=== PATIENT | female | born 1980 | race Caucasian/White ===

== ENCOUNTER → 2020-05-10 08:26 | Outpatient (CLI) | payer BC, SELFPAY ==
--- NOTE | ~2020-05-10 | MMUS_ITS ---
EXAMINATION: MM diagnostic clarke RT w anu, US breast RT limited HISTORY: Six-month follow-up for probably benign right breast mass TECHNIQUE: Craniocaudal, mediolateral, and mediolateral oblique 3-D tomosynthesis images of the right breast were performed and synthetic 2-D images were generated. CAD analysis was submitted and interp reted. High resolution limited right breast ultrasound was performed. COMPARISON: 10/11/2019 BREAST PARENCHYMAL COMPOSITION: The breasts are heterogeneously dense, which may obscure small masses . FINDINGS: MAMMOGRAPHIC FINDINGS: There is no evidence of suspicious mass, calcification, or architectural distortion to suggest malig tyra. There has been no suspicious interval change. ULTRASOUND: The previously described mass at the 9:00 location in the right breast is no longer evident. No suspi cious cystic or solid mass is identified in the upper outer quadrant of the breast. IMPRESSION: 1. Resolved sonographically detected right breast mass. No mammographic or sonographic evidence of ma lignancy. 2. Recommend routine screening mammography in one year. Of note, patient is due for left breast scree donna in September. BI-RADS Category 1: Negative Reviewed, dictated and finalized at location A. IMPRESSION: 1. Resolved sonographically detected right breast mass. No mammographic or sono graphic evidence of malignancy. 2. Recommend routine screening mammography in one year. Of note, patient is due for left breast screening in September. BI-RADS Category 1: Negative
== END ==
PROVIDERS: PCP Nurse Practitioner Family; Visit Provider Nurse Practitioner Family
DX: R92.8 Other abnormal and inconclusive findings on diagnostic imaging of breast (principal)
CPT/HCPCS: 76642; 77061; 77065; G0279

== ENCOUNTER 2023-09-16 09:49 | Outpatient (CLI) | payer BC, SELFPAY ==
--- NOTE | ~2023-09-16 | MMUS_ITS ---
EXAMINATION: MM diagnostic clarke BI w anu, US breast BI complete HISTORY: Breast pain, right upper inner quadrant, for 4 weeks TECHNIQUE: Full field and spot ML, MLO and CC 3-D tomosynthesis images of both breasts were performed and synthetic 2-D images were generated. CAD analysis was submitted and interpreted. High resolution complete bilateral breast ultrasound examination including all 4 quadrants and subareolar area of ea ch breast was performed. COMPARISON: 05/10/2020 diagnostic right mammogram and limited right breast ultrasound 10/11/2019 bilateral diagnostic mammography and bilateral Limited breast ultrasound examination Breast parenchymal composition: There is heterogeneously dense breast tissue, which may obscure small masses. FINDINGS: MAMMOGRAPHIC FINDINGS: No suspicious mass or architectural distortion, malignant calcification, skin thickening or retractio n or significant new or developing density is detected. ULTRASOUND: Right breast: 10:00 5 cm from nipple: Parallel circumscribed sonolucency measuring 2.8 x 4.6 x 4.8 mm, with through transmission, consistent with simple cyst Left breast: 2:00 7 cm from nipple: Parallel circumscribed hypoechoic 2.7 x 4.2 x 4.4 mm solid lesion with fatty h ilum, likely a benign intramammary lymph node 3:00 5 cm from nipple: Similar parallel circumscribed hypoechoic 2 x 4 x 3.1 mm lesion without international guest coordinator al vascularity or posterior shadowing, likely benign 4:00 5 cm from nipple: Parallel circumscribed mixed hypoechoic and sonolucent 2.1 x 5.2 x 4 mm lesion without internal vascularity or posterior shadowing, likely benign IMPRESSION: 1. Benign findings 2. Routine annual mammographic screening is recommended. BI-RADS Category 2: Benign finding(s). Reviewed, dictated and finalized at location A. BASE DESIGN ANALYST IMPRESSION: 1. Benign findings 2. Routine annual mammographic screening is recommended. BI-RADS Category 2: Benign finding(s).
== END 2023-09-16 09:50 ==
PROVIDERS: PCP Physician Assistant; Visit Provider Nurse Practitioner Family
DX: N64.4 Mastodynia (principal)
CPT/HCPCS: 76641; 77062; 77066; G0279

== ENCOUNTER 2024-04-27 07:52 | Outpatient (CLI) | payer BC, SELFPAY ==
--- NOTE | ~2024-04-27 | MR_ITS ---
EXAMINATION: MR knee RT wo con DATE: 04/27/2024 08:21 INDICATION: Derangement of the right knee TECHNIQUE: Magnetic resonance imaging (MRI) of the right knee was performed without intravenous contr ast. Sequences included coronal PD-weighted FSE, coronal PD-weighted FS FSE, sagittal T2-weighted FS E, sagittal PD-weighted FS FSE and axial PD weighted fat saturated FSE. COMPARISON: None. FINDINGS: Medial compartment: Medial meniscus is normal. Diffuse mild partial-thickness cartilage loss in the medial compartment wi th relatively smooth chondral surface along the medial tibial plateau and with chondral surface regul arity related to scattered partial thickness chondral ulceration and fissuring along the weightbearin g medial femoral condyle but without degenerative subchondral changes. Lateral compartment: Lateral meniscus is normal. Partially 4 mm diameter deep chondral ulceration without degenerative sub chondral changes at the junction of the anterior to central weightbearing lateral femoral condyle. Re maining articular cartilage in the lateral compartment is normal. Patellofemoral compartment: Articular cartilage is normal. Ligaments and tendons: Anterior and posterior cruciate ligaments are normal. The medial collateral ligament and fibular kyler ateral ligament complex are normal. Mild distal quadriceps tendinopathy without tear. Patellar tendon is normal. The visualized medial and lateral hamstring tendons as well as the iliotibial band are no rmal. Fluid: Minimal right knee joint effusion. No loose osteochondral bodies identified. Small Bashir's cyst. Osseous/other: Normal marrow signal. No fracture or pathologic marrow replacing process. IMPRESSION: 1. Mild osteoarthritis with regions of moderate grade chondromalacia in the lateral and more prominen tly in the medial compartment with likely reactive very small right knee joint effusion. Reviewed, dictated and finalized at location B. IMPRESSION: 1. Mild osteoarthritis with regions of moderate grade chondromalacia in the lat eral and more prominently in the medial compartment with likely reactive very s mall right knee joint effusion.
== END 2024-04-27 07:53 ==
LOC: MICIMG 07:52
PROVIDERS: PCP Physician Assistant; Visit Provider Family Medicine Sports Medicine
DX: M25.461 Effusion, right knee (principal); M17.11 Unilateral primary osteoarthritis, right knee
CPT/HCPCS: 73721

== ENCOUNTER 2024-11-24 11:05 | Outpatient (CLI) | payer BC, SELFPAY ==
[2024-11-24 11:19] LABS: Basophils Absolute Auto 0.1 K/mm3 (0.0-0.1); Basophils Percent Auto 1.4 % (0.2-1.2); Eosinophils Absolute Auto 0.1 K/mm3 (0-0.3); Eosinophils Percent Auto 1.8 % (0-4.4); Hematocrit 41.6 % (37.0-47.0); Hemoglobin 14.4 g/dL (12.0-15.0); Immature Granulocyte Absolute 0.01 K/mm3 (0.00-0.031); Immature Granulocyte Percent A 0.2 % (0-0.5); Lymphocytes Percent Auto 33.9 % (18.3-44.2); Mean Corpuscular HGB Conc 34.6 g/dl (32-36); Mean Corpuscular Hemoglobin 31.4 pg (26-34); Mean Corpuscular Volume 90.6 fl (80-100); Monocytes Absolute Auto 0.3 K/mm3 (0.1-0.6); Monocytes Percent Auto 6.6 % (2.6-8.5); Neutrophils Absolute Auto 2.8 K/mm3 (1.3-6.7); Neutrophils Percent Auto 56.1 % (45.5-73.1); Platelet Count Result 250 k/mm3 (150-375); Red Blood Count 4.59 M/mm3 (4.2-5.4)
--- OUTSIDE RECORDS SUMMARY | 2024-11-24 12:27 | XMS_ITS | Clinical Summary ---
Author Organization [facility] Address [address] [place] [address] Care Team Providers Care Surface Plate Inspector Name Role Phone Unavailable Primary Care Provider Unavailabl e Allergies Active Allergy Reactions Criticality Noted Date Comments Erythromycin Nausea and Vomiting Low 11/24/2024 Medications valsartan (DIOVAN) 320 mg tablet Take 320 mg by mouth daily. 11/22/2024 Active citalopram (CeleXA) 10 mg tablet Take 1 Tablet by mouth daily. 11/10/2024 Active Active Problems No known active problems Encounters Date Type Department Care Team Description 11/24/2024 10:30 AM BAFFLE MOUNTER Office Visit [facility] Oncology and Hematology - [place] [address] [place] [address] Norberto Gonsalez MD Iron overload (Primary Dx) from Last 3 Months Family History Medical History Relation Name Comments No Known Problems Brother No Known Problems Child Diabetes Father Heart Disease Mother Ovarian Cancer Mother Relation Name Status Comments Brother Alive Child Alive Father Alive Mother Alive Social History Tobacco Use Types Packs/Day Years Used Date Smoking Tobacco: Every Day Cigarettes 0.5 28.1 Started: 10/27/1996 Smokeless Tobacco: Never Tobacco Cessation:Ready to Q uit: Not Asked; Counseling Given: Not Answered Alcohol Use Standard Drinks/Week Comments Yes 0 (1 standard drink = 0.6 oz pur e alcohol) Comments Unknown Sex and Gender Information Value Date Recorded Sex Assigned at Not on file Legal Sex Female 2:41 PM BAFFLE MOUNTER Gender Identity Not on file Sexual Orientation Not on file Last Filed Vital Signs Vital Sign Reading Time Taken Comments Blood Pressure 135/89 11/24/2024 10:42 AM BAFFLE MOUNTER Pulse 98 11/24/2024 10:38 AM BAFFLE MOUNTER Temperature 37 ??C (98.6 ??F) 11/24/2024 10: 38 AM BAFFLE MOUNTER Respiratory Rate 16 11/24/2024 10:3 8 AM BAFFLE MOUNTER Oxygen Saturation 97% 11/24/2024 10: 38 AM BAFFLE MOUNTER Inhaled Oxygen Concentration - - Weight 74.3 kg (163 lb 12.8 oz) 025 10:38 AM BAFFLE MOUNTER Height 160 cm (5' 3 ) 11/24/2024 10:38 AM BAFFLE MOUNTER Body Mass Index 29.02 11/24/2024 10:38 AM BAFFLE MOUNTER Plan of Treatment Upcoming Encounters Date Type Department Care Team (Late st Contact Info) Description 12/09/2024 4:30 PM BAFFLE MOUNTER Telephone Check Up [facility]ology - [place] [address] [facility] [address] [place] [address] Norberto Gonsalez MD [address] [facility] [address] [place] [address] Health Maintenance Due Date Last Done Comments DTAP/TDAP/TD VACCINES (1 - Tdap) 1998 HEPATITIS B VACCINES (1 of 3 - 19+ 3-dose series) 1998 CERVICAL CANCER SCREENING 2009 BREAST CANCER SCREENING 2019 INFLUENZA VACCINE (#1) 2024 COLORECTAL SCREENING 2024 Colorectal Cancer Screening 2024 FIT-DNA Q 3 years 2024 FIT/FOBT Q 1 year 2024 Flex Sig/CT Colonography Q 5 years 2024 Preventative Visit- Commercial 10/27/2024 HPV VACCINES Aged Out No longer eligi ble based on patient's age to complete this topic Insurance BS BLUE ACCESS/TRUE BLUE PPO [facility]
--- OUTSIDE RECORDS SUMMARY | 2024-11-24 12:27 | XMS_ITS | Encounter Summary ---
[facility] Address [address] [place] [address] Care Team Providers Care Dependency Program Director Name Role Phone Unavailable Primary Care Provider Unavailabl e Reason for Referral * Laboratory Services (Routine) - Open Specialty Diagnoses / Procedures Referred By Blessing t Referred To Contact Diagnoses Iron overload Procedures HEMOCHROMATOSIS GENOTYPE Norberto Gonsalez MD [id number] [facility] [address] [address] Phone: tel: fax: Referral ID Status Reason Start Date Expiration Date Visits Re quested Visits Authorized [id number] Open 11/24/2024 12/25/2025 1 1 US SUPERVISOR Reason for Visit * Reason Comments Follow Up Encounter Details Date Type Department Care Team (Late st Contact Info) Description 11/24/2024 10:30 AM CAMPUS SUPERVISOR Office Visit [facility] Oncology and Hematology - [place] [address] [place] [phone] Norberto Gonsalez MD [id number] [facility] [address] [place] [phone] Iron overload (Primary Dx) Social History Tobacco Use Types Packs/Day Years [...] on file Legal Sex Female 2:41 PM CAMPUS SUPERVISOR Gender Identity Not on file Sexual Orientation Not on file documented as of this encounter Last Filed Vital Signs Vital Sign Reading Time Taken Comments Blood Pressure 135/89 11/24/2024 10:42 AM CAMPUS SUPERVISOR Pulse 98 11/24/2024 10:38 AM CAMPUS SUPERVISOR Temperature 37 ??C (98.6 ??F) 11/24/2024 10: 38 AM CAMPUS SUPERVISOR Respiratory Rate 16 11/24/2024 10:3 8 AM CAMPUS SUPERVISOR Oxygen Saturation 97% 11/24/2024 10: 38 AM CAMPUS SUPERVISOR Inhaled Oxygen Concentration - - Weight 74.3 kg (163 lb 12.8 oz) 025 10:38 AM CAMPUS SUPERVISOR Height 160 cm (5' 3 ) 11/24/2024 10:38 AM CAMPUS SUPERVISOR Body Mass Index 29.02 11/24/2024 10:38 AM CAMPUS SUPERVISOR documented in this encounter Progress Notes * Norberto Gonsalez MD - 11/24/2024 10:44 AM CST Hematology-oncology consult Note Requesting Physician Primary Care Physician No primary care provider on file. Problem list There is no problem list on file for this patient. Previous TREATMENT ? Measurable Disease ? Reason for Visit Leatha Monte is a 44 y.o. female who was referred for consultation for iron overload History of present illness This is a pleasant 44-year-old female with history of hypertension and anxiety referred to me for iron overload. Patient had labs done in July 2024 that showed iron level of 204 with saturation of 60% and ferritin of 246. She has no family history of hemochromatosis. Her last menstrualbleeding was 17 years ago. She drinks 5 glasses of vodka every night for last 20 years duration. She denies any chest pain and shortness of breath. No bleeding and bruising. She has gained 30 pound weight in last 6 months duration. She is not taking any iron supplements. No other new complaints. Past Medical History Past Medical History: Diagnosis Date Diarrhea Fatigue Extreme Hypertension Night sweats Surgical History Past Surgical History: Procedure Laterality Date HX CHOLECYSTECTOMY HX ESSURE TUBAL LIGATION Medications Current Outpatient Medications Medication Sig Dispense Refill valsartan (DIOVAN) 320 mg tablet Take 320 mg by mouth daily. citalopram (CeleXA) 10 mg tablet Take 1 Tablet by mouth daily. No current facility-administered medications for this visit. Allergies Allergies Allergen Reactions Erythromycin Nausea and Vomiting Immunizations: There is no immunization history on file for this patient. Family History Family History Problem Relation Name Age of Onset Diabetes Father Ovarian Cancer Mother Heart Disease Mother No Known Problems Brother No Known Problems Child Social History Social History Tobacco Use Smoking status: Every Day Current packs/day: 0.50 Average packs/day: 0.5 packs/day for 28.1 years (14.0 ttl pk-yrs) Types: Cigarettes Start date: 10/27/1996 Smokeless tobacco: Never Substance Use Topics Alcohol use: Yes Review of Systems Constitutional: Patient did not mention fever; no night sweats; no anorexia; no weight loss; no fatique NEENT: Patient did not mention headache; no change in vision; no change in hearing; no sore throat;no dysphagia Respiratory: Patient did not mention shortness of breath; no pleuritic chest pain; no cough; no hemoptysis Cardiac: Patient did not mention cardiac-like chest pain; no palpitations; no orthopnea; no PND; noDOE Breasts: Patient did not mention tenderness; no masses GI: Patient did not mention abdominal pain; no nausea; no vomiting; no diarrhea; no hematochezia; no melena : Patient did not mention dysuria; no frequency; no hesitancy; no hematuria SHOE PARTS CASER: Musculosketetal: Patient did not mention bone pain; no arthralgia; no joint swelling; no myalgia; Skin: Patient did not mention pruritis; no rash; no petechiae; no ecchymoses Endocrine: Patient did not mention polydipsia; no polyuria; no unusual weight gain Neuro: Patient did not mention headache; no change in vision; no sensory changes; no muscle weakness; no confusion; no seizures Psych: Patient did not mention anxiety; no depression; Physical Exam Vitals: As per nursing note Constitutional: Well developed, well nourished, no acute distress, non-toxic appearance Teeth and gum. No signs of infection or swelling. Eyes: PERRL, conjunctiva normal HEENT: Atraumatic, external ears normal, nose normal, oropharynx moist, no pharyngeal exudates. no sinus tenderness Neck- normal range of motion, no tenderness, supple Respiratory: No respiratory distress, normal breath sounds, no rales, no wheezing Cardiovascular: Normal rate, normal rhythm, no murmurs, no gallops, no rubs GI: Soft, nondistended, normal bowel sounds, nontender, no splenomegaly, no hepatomegaly, no mass, no rebound, no guarding : No costovertebral angle tenderness Musculoskeletal: No edema, no tenderness, no deformities. Back- no tenderness Integument: Well hydrated, no rash, Digits and nails inspection normal Lymphatic: No lymphadenopathy noted Neurologic: Alert & oriented x 3, CN 2-12 normal, normal motor function, normal sensory function, no focal deficits noted Psychiatric: Speech and behavior appropriate ? labs No results found for this or any previous visit (from the past 24 hours). Labs from January 2024 showed iron 204 saturation 60% ferritin 246 Pathology ? Imaging & Other Studies Performance Status? Assessment / Plan: ? Iron overload. Patient is a 44-year-old slightly obese female with history of drinking vodka 5 glasses every night for last 20 years duration referred to me for iron overload syndrome. She has no family history or personal history of hemochromatosis. Patient otherwise in good health except history of hypertension and anxiety. I have discussed the differential diagnosis of iron overload and complication associated with iron overload as well as the treatment in detail. In her particularsituation her iron overload is most likely secondary to her alcohol intake. I have recommended abstinence from drinking. I will order the workup that will include CBC with differential, CMP, iron profile and JAK2 mutation. Based on the result we will decide about phlebotomy to keep iron saturation of less than 50% and ferritin of less than 200. I have also recommended regular exercise and weight loss. I have answered all the questions to patient satisfaction. Follow-up phone visit in 2 weeks. Hypertension. Stable on valsartan. Anxiety. Stable on Celexa. Thank you very much for allowing me to participate in Leatha Monte's evaluation and management. Please feel free to contact if I can be of any further assistance in your patient???s care requiring hematology or oncology evaluation. Sincerely, ? ? Norberto Gonsalez M.D. cell TOBACCO COUNSELING She was counseled to discontinue tobacco/nicotine use. Norberto Gonsalez MD ,11/24/2024 11:15 AM ? Total time spent 60 minutes, two third of the total time spent counseling patient [id number]. CC:? US SUPERVISOR documented in this encounter Plan of Treatment Upcoming Encounters Date Type Department Care Team (Late st Contact Info) Description 12/09/2024 4:30 PM CAMPUS SUPERVISOR Telephone Check Up [facility] Oncology and Hematology - [place] [address] [facility] [address] [place] [phone] Norberto Gonsalez MD [address] [facility] [address] [place] [address] Scheduled Orders Name Type Priority Associated Diagnoses Orde r Schedule CBC WITH DIFFERENTIAL Lab Stat Iron overload Expected: 11/24/2024, Expires: 11/24/2025 COMPREHENSIVE METABOLIC PANEL Lab Stat Iron overload Expected: 11/24/2024, Expires: 11/24/2025 FERRITIN Lab Routine Iron overload Expected: 11/24/2024, Expires: 11/24/2025 IRON, TIBC, AND PERCENT SATURATION Lab Routine Iron overload Expected: 11/24/2024, Expires: 11/24/2025 HEMOCHROMATOSIS GENOTYPE Lab Routine Iron overload Ordered: 11/24/2024 documented as of this encounter Visit Diagnoses Diagnosis Iron overload- Primary Other disorders of iron metabolism documented in this encounter
--- OUTSIDE RECORDS SUMMARY | 2024-11-24 12:28 | XMS_ITS | Referral Summary ---
Author Organization [address] Address [address] [place] [phone] Care Team Providers Care Robotic Weld Technician Name Role Phone DoloresDionna cortezlee ann GOODMAN Primary Care Pr ovider Allergies Active Allergy Reactions Criticality Noted Date Comments Erythromycin Stomach upset,Unknown,Vomiting Low 09/01/2009 Reaction: GI UPSET, Medications escitalopram (LEXAPRO) 20 mg tablet Take 1 tablet (20 mg total) by mouth daily 10/11/2013 Active valsartan (DIOVAN) 160 mg tablet Take 1 tablet (160 mg total) by mouth daily 03/15/2024 Active meloxicam (MOBIC) 7.5 mg tabletIndication s:Acute pain of right knee TAKE 1 TABLET(7.5 MG) BY MOUTH DAILY WITH FOOD NEEDED FOR PAIN 30 tablet 06/07/2024 Active Active Problems Problem Noted Date Diagnosed Date Panic disorder 07/31/2011 Depressive disorder 09/01/2009 Social History Tobacco Use Types Packs/Day Years Used Date Smoking Tobacco: Every Day Cigarettes Tobacco Cessation:Ready to Q uit: Not Asked; Counseling Given: Not Answered Comments Unknown Sex and Gender Information Value Date Recorded Sex Assigned at Not on file Legal Sex Female 4:20 AM CEREAL MILLER Gender Identity Not on file Sexual Orientation Not on file Last Filed Vital Signs Vital Sign Reading Time Taken Comments Blood Pressure 145/82 04/16/2024 9:31 AM CDT Pulse 99 04/16/2024 9:31 AM CDT Temperature 36.1 ??C (96.9 ??F) 03/26/2024 2:25 PM CD T Respiratory Rate 12 03/26/2024 2:25 PM CDT Oxygen Saturation 98% 03/26/2024 2:25 PM CDT Inhaled Oxygen Concentration - - Weight 71.2 kg (157 lb) 04/16/2024 9:31 AM CDT Height 160.5 cm (5' 3.19 ) 04/16/2024 9:31 AM CD T Body Mass Index 27.65 04/16/2024 9:31 AM CDT Plan of Treatment Not on file Insurance [facility] ACCESS CHOICE Care Teams Robotic Weld Technician Relationship Specialty Start Date End Date Sanam Hinojosa PA [address] [place] [address] PCP - General Physician Color Paste Mixer 04/16/24
--- OUTSIDE RECORDS SUMMARY | 2024-11-24 12:28 | XMS_ITS | Clinical Summary ---
Author Organization [facility] Address [address] [facility] [place] [address] Care Team Providers Care Air Export Agent Name Role Phone Pcp, Adam Snyder Primary Care Provider Unav ailable Source Comments [facility],non-owned Affiliates and Associated Physician Practices is amultiple site organization consisting of ambulatory clinics and hospital sitesin [place], [place], [place] and [place]. This disclosure is being madepursuant to the Care Everywhere program and may not contain all information available regarding this patient. Last updated 18.[facility] Allergies Active Allergy Reactions Criticality Noted Date Comments Erythromycin Unknown 09/01/2009 Medications * Be aware that medications may not be up to date on this document. Alwaysverify current medications with the patient. Medication Sig Dispensed Refills Start Date End Date Status escitalopram (LEXAPRO) 20 MG tablet TAKE 1 TABLET BY MOUTH EVERY DAY 30 Tab 6 10/11/2013 Active Active Problems Problem Noted Date Diagnosed Date IRVIN (generalized anxiety disorder) 07/31/2011 Panic disorder 07/31/2011 Screening for condition 09/01/2009 Overview (07/27/2015): Colonoscopy: Result: Not avail in chart Date: 1999 Pap Smear: Result: Not avail in chart Date: 10/2007 Mammogram: Result: Not avail in chart Date: 1999 Depressive disorder 09/01/2009 Family History Medical History Relation Name Comments Cancer Father Cancer Maternal Grandmother Asthma Mother Cancer Mother Hypertension Mother Cancer Paternal Grandfather Cancer Paternal Grandmother Relation Name Status Comments Father Maternal Grandmother Mother Paternal Grandfather Paternal Grandmother Social History Tobacco Use Types Packs/Day Years Used Date Smoking Tobacco: Every Day Cigarettes 0.5 10 Smokeless Tobacco: Current Alcohol Use Standard Drinks/Week Comments Yes 2.5 (1 standard drink = 0.6 oz p ure alcohol) Sex and Gender Information Value Date Recorded Sex Assigned at Not on file Gender Identity Not on file Sexual Orientation Not on file Last Filed Vital Signs Vital Sign Reading Time Taken Comments Blood Pressure 124/80 11/02/2012 11:09 AM STRAIGHTENING MACHINE OPERATOR Pulse 64 11/02/2012 11:09 AM STRAIGHTENING MACHINE OPERATOR Temperature - - Respiratory Rate - - Oxygen Saturation - - Inhaled Oxygen Concentration - - Weight 69.4 kg (153 lb) 11/02/2012 11:09 AM STRAIGHTENING MACHINE OPERATOR Height 160 cm (5' 3 ) 11/02/2012 11:09 AM STRAIGHTENING MACHINE OPERATOR Body Mass Index 27.1 11/02/2012 11:09 AM STRAIGHTENING MACHINE OPERATOR Plan of Treatment Health Maintenance Due Date Last Done Comments COLOGUARD (AGES 45-75) - COL ON CA SCREENING 1979 COLON MONITORING 1979 COLONOSCOPY - COLON CA SCREENING 1979 CT COLONOGRAPHY - COLON CA SCREENING 1979 Colorectal Cancer Screening 1979 FIT - COLON CA SCREENING 1979 FLEX SIG - COLON CA SCREENING 1979 LIPID TESTING 1979 MAMMOGRAM 1979 PAP SMEAR 1979 HIV SCREENING 1994 HEPATITIS C SCREENING 07/09/1997 DTAP/TDAP/TD VACCINES (1 - Tdap) 1998 HEPATITIS B VACCINE (1 of 3 - 19+ 3-dose series) 1998 PNEUMOCOCCAL VACCINE (1 of 2 - PCV) 1998 COVID-19 VACCINE ( - 2023-2 5 season) 2024 INFLUENZA VACCINE (#1) 2024 DEPRESSION SCREENING 10/27/2024 ZOSTER VACCINE (1 of 2) 2029 HIB VACCINE Aged Out No longer eligi ble based on patient's age to complete this topic HPV VACCINE Aged Out No longer eligi ble based on patient's age to complete this topic MENINGOCOCCAL (Group B) VACCINE Aged Out No longer eligible based on patient's age to complete this topic MENINGOCOCCAL VACCINE Aged Out No kaylin nimo eligible based on patient's age to complete this topic Care Teams Air Export Agent Relationship Specialty Start Date End Date PcpAdam PCP - General 05/23/23
--- OUTSIDE RECORDS SUMMARY | 2024-11-24 12:28 | XMS_ITS | Patient Health Summary ---
Author Organization [facility] Address [address] [place] [address] Care Team Providers Care Product Design Engineer Name Role Phone Pcp, Adam Torres Primary Care Provider Unav ailable Note from [facility],non-owned Affiliates and Associated Physician Practices is amultiple site organization consisting of ambulatory clinics and hospital sitesin [place], [place], [place] and [place]. This disclosure is being madepursuant to the Care Everywhere program and may not contain all information available regarding this patient. Last updated 18.[facility] Allergies * Erythromycin(Unknown) Medications * Be aware that medications may not be up to date on this document. Alwaysverify current medications with the patient. * escitalopram (LEXAPRO) 20 MG tablet(Started 10/11/2013) TAKE 1 TABLET BY MOUTH EVERY DAY 6 refills left Active Problems Problem Noted Date Diagnosed Date IRVIN (generalized anxiety disorder) 07/31/2011 Panic disorder 07/31/2011 Screening for condition 09/01/2009 Depressive disorder 09/01/2009 Social History Tobacco Use [...] Comments Blood Pressure 124/80 11/02/2012 11:09 AM RAIL SWITCH OPERATOR Pulse 64 11/02/2012 11:09 AM RAIL SWITCH OPERATOR Temperature - - Respiratory Rate - - Oxygen Saturation - - Inhaled Oxygen Concentration - - Weight 69.4 kg (153 lb) 11/02/2012 11:09 AM RAIL SWITCH OPERATOR Height 160 cm (5' 3 ) 11/02/2012 11:09 AM RAIL SWITCH OPERATOR Body Mass Index 27.1 11/02/2012 11:09 AM RAIL SWITCH OPERATOR Procedures * XR HAND RIGHT 3VW OR MORE(Performed 10/25/2011) * US ABDOMEN LIMITED(Performed 09/25/2007) Performed for Abdominal Pain, Right Upper Quadrant * HGB HCT PANEL(Performed 07/30/2007) Performed for Prev G-Wvkdzmws-Uuwhynyc * TYPE + SCREEN PANEL(Performed 07/29/2007) Performed for Prev G-Jcvlpuzc-Xlzntfuv * COMPREHENSIVE METABOLIC PANEL(Performed 07/29/2007) Performed for Prev H-Azwrgzhm-Jedbsoop * CBC W AUTO DIFFERENTIAL(Performed 07/29/2007) Performed for Prev K-Cfgwsvdo-Oofwhqdq * URINALYSIS REFLEX TO MICROSCOPIC NO CULTURE(Performed 07/29/2007) Performed for Prev D-Bakowwkm-Hkiigvbo * LYTES (NA K CL CO2) BLOOD(Performed 07/26/2007) Performed for Complic Labor NEC-Antepart (HCC) * CBC W AUTO DIFFERENTIAL(Performed 07/26/2007) Performed for Complic Labor NEC-Antepart (HCC) * GROSS + MICRO EXAM(Performed 01/10/2003) * GROSS + MICRO EXAM(Performed 11/05/2001) Results * XR HAND 3+ VW RIGHT (10/25/2011) Anatomical Region Laterality Modality Wrist / Hand Other Jacques Ruelas DO DIAGNOSTIC IMAGING O RDERABLES * US ABDOMEN LIMITED (09/25/2007 11:00 AM RAIL SWITCH OPERATOR) Anatomical Region Laterality Modality Abdomen Other 09/25/2007 11:0 0 AM RAIL SWITCH OPERATOR Narrative 09/25/2007 12:01 PM RAIL SWITCH OPERATOR History- pain in the right upper quadrant . Ultrasound right upper quadrant. FINDINGS- Real-time ultrasound examination of right upper quadrant was performed. Liver is normal without focal mass or biliary dilatation. Common bile duct is not dilated. CBD measures 2 mm in diameter. Gallbladder is well visualized. Gallbladder wall is not thickened and measures 3 mm in diameter. Sonographic Rhodes's sign is positive. Large gallstones are present measuring up to 1.3 cm in largest diameter. Pancreas is normal. Right kidney is unremarkable. IMPRESSION- 1. Multiple gallstones without biliary obstruction. 2. Sonographic Rhodes's sign is positive and may suggest early cholecystitis. ? Reading Radiologist- XOCHITL ARANDA MD ? Releasing RadiologistDaniel ARANDA MD ? Released Date Time- 09/25/07 1202 ? Milieu Therapist- AKM ? ADM- IVIS MAC ?ATT- IVIS MAC REF- IVIS MAC ?CON- PCP- IVIS MAC ?SCP- Tomas Mac MD ORDERABLES * (ABNORMAL) HGB HCT PANEL (07/30/2007 4:25 AM CDT) Hemoglobin 9.1(DL) 11.7 - 15.5 gm/dl [facility] Hematocrit 28.3(L) 36 - 46 % [facility] 07/30/2007 4:25 AM CDT Tomas Mac MD LAB - HEMATOLOGY O RDERABLES [address] [address] * TYPE + SCREEN PANEL (07/29/2007 9:05 AM CDT) ABO Rh O POS [facility] Antibody Screen NEG NEG [facility] 07/29/2007 9:05 AM CDT Narrative [facility] - 07/29/2007 10:17 AM CDT PT. IN OPS Tomas Mac MD LAB - BLOOD BANK O NEREIDA Performing Organization Address City/State/[facility] Co de Phone Number [facility] [address] [place] [address] * (ABNORMAL) CBC W AUTO DIFFERENTIAL (07/29/2007 9:05 AM CDT) Only the most recent of2 resultswithin the time period is included. WBC 5.2 4.2 - 10.2 K/CUM[facility] RBC 4.16 3.80 - 5.30 M/CUMM [facility] Hemoglobin 10.1(L) 11.7 - 15.5 gm/dl [facility] Hematocrit 30.7(L) 36 - 46 % [facility] MCV 73.8(L) 80 - 99 fl [facility] MCH 24.3(L) 27.1 - 33.1 pg [facility] MCHC 32.9 32 - 36 gm/dl [facility] RDW 16.3(H) 11.5 - 14.5 % [facility] Platelet Count 204 150 - 400 K/[facility] Granulocytes % 69.1 45 - 73 % [facility] Lymphocytes % 23.9 22 - 41 % [facility] Monocytes % 5.6 2 - 13 % [facility] Eosinophils % 0.6 0 - 6 % [facility] Basophils % 0.8 0 - 2 % [facility] Granulocytes Absolute 3.6 1.7 - 7.7 [facility] Lymphocytes Absolute 1.2 1.0 - 3.0 [facility] Monocytes Absolute 0.3 0.2 - 1.0 [facility] Eosinophils Absolute 0.0 0.0 - 0.4 [facility] Basophils Absolute 0.0 0.0 - 0.1 [facility] Comment Manual Diff Automated Diff Performed [facility] 07/29/2007 9:05 AM CDT Narrative [facility] - 07/29/2007 9:23 AM CDT PT. IN OPS Tomas Mac MD LAB - HEMATOLOGY O RDERABLES [facility] [address] [place] [address] * (ABNORMAL) COMPREHENSIVE METABOLIC PANEL (07/29/2007 9:05 AM CDT) Glucose 72 65-105 Fasting mg/dL [facility] BUN 5(L) 7 - 18 mg/dL [facility] Creatinine 0.6 0.5 - 1.2 mg/dL [facility] BUN/Creatinine Ratio 8.5 [facility] Sodium 138 137 - 145 mEq/L [facility] Potassium 3.7 3.6 - 5.0 mEq/L [facility] Chloride 108(H) 98 - 107 mEq/L [facility] CO2 23 22 - 31 mEq/L [facility] Anion Gap 6 [facility] Calcium 8.2(L) 8.4 - 10.6 mg/dL [facility] Alkaline Phosphatase 159(H) 38 - 126 U/L [facility] ALT 26 7 - 56 U/L [facility] AST 20 5 - 40 U/L [facility] Protein Total 5.6(L) 6.3 - 8.2 gm/dl [facility] Albumin 2.9(L) 3.9 - 5.0 gm/dl [facility] Bilirubin Total 0.3 0.2 - 1.3 mg/dL [facility] eGFR by MDRD >60 SEE BELOW mL/min/1.73 m2 [facility] Comment: >60 Normal Chronic Disease <60 Renal Failure <15 07/29/2007 9:05 AM CDT Narrative [facility] - 07/29/2007 9:38 AM CDT PT. IN OPS Tomas Mac MD LAB - CHEMISTRY OR DERABLES Performing Organization Address [facility] Co de Phone Number [address] [address] * URINALYSIS ROUTINE AUTO (07/29/2007 8:40 AM CDT) Source CLEAN CATCH [facility] Color UA Yellow [facility] Character UA Clear [facility] Specific [place] UA 1.020 1.002 - 1.030 [facility] pH UA 7.0 5.0 - 8.0 [facility] Protein UA Negative NEG [facility] Blood UA Negative NEG [facility] Leukocyte UA Negative NEG [facility] Nitrite UA Negative NEG [facility] Glucose UA Negative NEG [facility] Ketone UA Trace NEG [facility] Bilirubin UA Negative NEG [facility] Urobilinogen UA 1.0 0.1 - 1.0 EU/dl [facility] 07/29/2007 8:40 AM CDT Narrative [facility] - 07/29/2007 9:15 AM CDT PT. IN OPS Tomas Mac MD LAB - URINALYSIS O RDERABLES Performing Organization Address [facility] Co de Phone Number [address] [address] * (ABNORMAL) LYTES (NA K CL CO2) BLOOD (07/26/2007 2:50 PM CDT) Sodium 137 137 - 145 mEq/L [facility] Potassium 3.4(L) 3.6 - 5.0 mEq/L [facility] Chloride 110(H) 98 - 107 mEq/L [facility] CO2 19(L) 22 - 31 mEq/L [facility] Anion Gap 9 [facility] 07/26/2007 2:50 PM CDT Tomas Mac MD LAB - CHEMISTRY OR DERABLES [address] [address] * GROSS + MICRO EXAM (01/10/2003 1:07 PM RAIL SWITCH OPERATOR) Only the most recent of2 resultswithin the time period is included. Result CASE NUMBER [id number] Comment: ORDERING PHYSICIAN ??IVIS MAC SPECIMEN TYPE ?Peritoneal-adhesion LT side wall Preop Dx ? 22 y/o w/f, G1,P1,A0, w/right-sided pelvic pain Postop Dx ?Same with peritoneal adhesions of colon to left abdominal side wall. Clinical Findings ?As above GROSS DESCRIPTION ? In Histochoice peritoneal adhesions left side wall is 7 mm partially smooth surfaced falcon tissue fragment, cross sectioned, entirely submitted. (mep)lmq BLOCK ? A - Peritoneal adhesions from left side wall Grossed by ? Rayo Del Rio M.D. MICROSCOPIC EXAMINATION ? Microscopic examination corroborates the diagnosis. (ncm) lmq DIAGNOSIS ? Peritoneal tissue from left abdominal side wall, biopsy - ? Consistent with serosal adhesions ? - Negative for malignancy Read by ?Rowan Ren M.D. Released By ?ROWAN REN MISCELLANEOUS SAMPLES / Unknown 01/10/2003 1:07 PM RAIL SWITCH OPERATOR 01/10/2003 1:08 PM RAIL SWITCH OPERATOR Historical Provider LAB - PATHOLOGY/C YTOLOGY ORDERABLES Care Teams Product Design Engineer Relationship Specialty Start Date End Date Pcp, Adam Snyder PCP - General 05/23/23
--- OUTSIDE RECORDS SUMMARY | 2024-11-24 12:28 | XMS_ITS | Clinical Summary ---
Author Organization [facility] Address [address] [place] [address] Phone Care Team Providers Care Slider Assembler Name Role Phone Provider, None Primary Care Provider Unavailabl e Allergies Active Allergy Reactions Criticality Noted Date Comments Erythromycin Vomiting 11/18/2016 Immunizations Immunization Administration Dates Next Due TDAP Vaccine 11/18/2016 Social History Tobacco Use Types Packs/Day Years Used Date Smoking Tobacco: Every Day Alcohol Use Standard Drinks/Week Comments Yes 0 (1 standard drink = 0.6 oz pur e alcohol) Comments No Sex and Gender Information Value Date Recorded Sex Assigned at Not on file Legal Sex Female 7:48 PM CDT Gender Identity Not on file Sexual Orientation Not on file Last Filed Vital Signs Vital Sign Reading Time Taken Comments Blood Pressure 152/88 11/18/2016 11:45 AM PRODUCTION INSPECTOR Pulse 71 11/18/2016 1:02 PM PRODUCTION INSPECTOR Temperature 35.8 ??C (96.4 ??F) 11/18/2016 11:[address] Respiratory Rate 16 11/18/2016 1:02 PM PRODUCTION INSPECTOR Oxygen Saturation 98% 11/18/2016 1:02 PM PRODUCTION INSPECTOR Inhaled Oxygen Concentration - - Weight 59 kg (130 lb) 11/18/2016 11:43 AM PRODUCTION INSPECTOR Height 161.3 cm (5' 3.5 ) 11/18/2016 11:43 AM CS T Body Mass Index 22.67 11/18/2016 11:43 AM PRODUCTION INSPECTOR Plan of Treatment Not on file Insurance [facility] Care Teams Slider Assembler Relationship Specialty Start Date End Date Provider, None [place] PCP - General 11/18/16
--- OUTSIDE RECORDS SUMMARY | 2024-11-24 12:28 | XMS_ITS | Clinical Summary ---
Author Organization [address] Address [address] [place] [id number] Care Team Providers Care Boat Operator Name Role Phone DoloresSanam cortez Mary Lou GOODMAN Primary Care Pr ovider Allergies Active [...] Date Panic disorder 07/31/2011 Depressive disorder 09/01/2009 Surgical History Surgery Date Site/Laterality Comments OTHER SURGICAL HISTORY surgery in pelvic region - ?essure device Social History Tobacco Use Types Packs/Day Years Used Date Smoking Tobacco: Every Day Cigarettes Tobacco Cessation:Ready to Q uit: Not Asked; Counseling Given: Not Answered Comments Unknown Sex and Gender Information Value Date Recorded Sex Assigned at Not on file Legal Sex Female 4:20 AM NUTRITION THERAPIST Gender Identity Not on file Sexual Orientation Not on file Obstetrics History Last Filed Vital Signs Vital Sign Reading [...] 04/16/2024 9:31 AM CDT Plan of Treatment Health Maintenance Due Date Last Done Comments Breast Cancer Screening-Mammogram 1979 Cervical Cancer Screening 1979 Colon Cancer Screening-Colonoscopy 1979 Depression Screening 1979 Hepatitis C Screening 1979 Pneumococcal vaccine <65 (1 of 2 - PCV) 1985 Hepatitis B Screening 1997 Regular Well Visit/Exam 18-64 1997 Covid-19 Vaccine (4 - 2023-2 5 season) 2024 12/11/2021, 04/05/2021, 03/15/2021 Influenza Vaccine (#1) 2024 DTaP/Tdap/Td Vaccine (2 - Td or Tdap) 11/18/2026 11/18/2016 HPV Vaccines Aged Out No longer eligi ble based on patient's age to complete this topic Insurance [facility] ACCESS CHOICE Care Teams Boat Operator Relationship Specialty Start Date End Date Sanam Hinojosa PA [address] [place] [address] PCP - General Physician Bonding Molder 04/16/24
--- OUTSIDE RECORDS SUMMARY | 2024-11-24 12:28 | XMS_ITS | Referral Summary ---
Author Organization [facility] Address [address] [place] [address] Care Team Providers Care Successfactors Consultant Name Role Phone Pcp, Adam Snyder Primary Care Provider Unav ailable Source Comments [facility],non-owned Affiliates and Associated Physician Practices is amultiple site organization consisting of ambulatory clinics and hospital sitesin [place], [place], [place] and [place]. This disclosure is being madepursuant to the Care Everywhere program and may not contain all information available regarding this patient. Last updated 18.[facility] Allergies Active Allergy Reactions Criticality Noted Date [...] in chart Date: 1999 Depressive disorder 09/01/2009 Social History Tobacco Use [...] Comments Blood Pressure 124/80 11/02/2012 11:09 AM PRETZEL PACKER Pulse 64 11/02/2012 11:09 AM PRETZEL PACKER Temperature - - Respiratory Rate - - Oxygen Saturation - - Inhaled Oxygen Concentration - - Weight 69.4 kg (153 lb) 11/02/2012 11:09 AM PRETZEL PACKER Height 160 cm (5' 3 ) 11/02/2012 11:09 AM PRETZEL PACKER Body Mass Index 27.1 11/02/2012 11:09 AM PRETZEL PACKER Plan of Treatment Not on file Care Teams Successfactors Consultant Relationship Specialty Start Date End Date Adam Ellison PCP - General 05/23/23
--- OUTSIDE RECORDS SUMMARY | 2024-11-24 12:28 | XMS_ITS | Data Portability ---
Author Organization [facility] Address [address] [place] [address] Care Team Providers Care Mailroom Associate Name Role Phone ADAL IRAHETA Primary Care Provider Unavailab le Assessment Encounter Date Assessment Date Assessment LastModified by Organization Details LastModified Time 02/17/2024 02/17/2024 Mammogram UTD late 2022 pap smear is needed. pt needs to schedule. Not available 02/17/2024 14:58:08 Plan of Treatment Reminders Order Date Submit Date Provider Last Modified By Organization Details Last Modified Time Details Appointments ANY 15 2024 01:15P M REX Pena Not available Not available Not available Lab TSH + free T4, serum 2023 024 JUDIE Benson, [address], [place], [address], 02/23/2024 16:36:32 T3, free, serum or plasma 2023 024 JUDIE Benson, [address], [place], [address], 02/23/2024 16:36:37 thyropero xidase Ab, serum 2023 024 JUDIE Benson, [address], [place], [address], 02/23/2024 16:36:36 lipid panel, serum 2023 024 JUDIE Benson, [address], [place], [address], 02/23/2024 16:36:31 CBC w/ auto diff 2023 [facility], [address], [place], [address], 02/23/2024 16:36:34 CMP, serum or plasma 2023 [facility], [address], [place], [address], 02/23/2024 16:36:32 vitamin B12 + folate, serum or blood 2023 [facility], [address], [place], [address], 02/23/2024 16:36:33 vitamin D, 25-hydrox y, total, serum 2023 [facility], [address], [place], [address], 02/23/2024 16:36:38 iron + TIBC + ferritin, serum 2023 [facility], [address], [place], [address], 02/23/2024 16:36:37 RICK (antinucl ear antibodie s) panel, serum 2023 [facility], [address], [place], [address], 02/23/2024 16:36:30 rf (rheumato id factor) + anti-ccp abs, serum 2023 [facility], [address], [place], [address], 02/23/2024 16:36:30 erythrocy te sedimenta tion rate by dima n method 2023 [facility], [address], [place], [address], 02/23/2024 16:36:35 C reactive protein, QN, serum or plasma 2023 [facility], [address], [place], [address], 02/23/2024 16:36:36 HbA1c (hemoglob in A1c), blood 2023 [facility], [address], [place], [address], 02/23/2024 16:36:34 Referral None recorded. Procedures colonosco py screening (PROC) 2023 [facility], [address], [address], [place], [address], 08/18/2024 10:22:55 Surgeries None recorded. Imaging None recorded. Medication Orders valsartan 160 mg tablet 2023 024 [email or web address] [id number], [address] [facility], [place], [place], [id number], 09/02/2024 14:15:14 valsartan 160 mg tablet 2023 024 [facility] #62499, [address] [place] [address], [id number], 09/02/2024 14:15:39 fluoxetin e 10 mg capsule 2023 [facility] #02560, [address], [place], [id number], 09/02/2024 13:59:24 valsartan 320 mg tablet 11/2023 [facility] #58403, [address] [place] [address], [id number], 09/02/2024 14:15:42 citalopra m 10 mg tablet 2023 [facility] #45102, [address] [place] [address], [id number], 09/02/2024 14:11:36 Patient TargetsNo targets recorded. Patient Instructions Encounter Date Encounter Id Patient Instructions Last Modified By Organization Details Last Modified Time 09/02/2024 [id number] A healthy lifestyle: care instructions Not available 09/02/2024 14:11:31 Reason for Referral None Reported. Results Created Date Observation Date Name Description Value Unit Range Abnormal Flag Note LastModifiedBy Organization Detail LastModifiedTime 02/20/20 24 02/21/2024 RHEUM ATOID ARTHR ITIS PROFI LE rheumatoid factor (rf) <10.0 IU/mL <14.0 Not Available [facility] ([facility]) [address] [facility], [place], [address], 02/23/2024 16:36:29 02/20/20 24 02/21/2024 RHEUM ATOID ARTHR ITIS PROFI LE anti-ccp Ab, IgG/IgA 7 units 0-19 Negat henri <20 Weak posit henri 20 - 39 Moder ate posit henri 40 - 59 Stron g posit henri >59 Not Available [facility] ([facility]) [address] [facility], [place], [address], 02/23/2024 16:36:29 02/20/20 24 02/20/2024 ANTIN UCLEA R AB 11 BY MULTI PLEX see below: TAISHA Bishop Autoa ntibo dy Disea se Assoc iatio n Condi tion Frequ ency _ ____ ____ Antin uclea r Antib agatha, SLE, mixed conne ctive Direc t (RICK- D) tissu e disea ses _ ____ ____ dsDNA SLE 40 - 60% _ ____ ____ Chrom atin Drug induc ed SLE 90% SLE 48 - 97% _ ____ ____ SSA (Ro) SLE 25 - 35% Sjogr en's Syndr ome 40 - 70% Neona samuel Lupus 100% _ ____ ____ SSB ([place]) SLE 10% Sjogr en's Syndr ome 30% _ ___ ____ Sm (anti -Orlando h) SLE 15 - 30% _ ___ ____ EDUCATION REVIEWER Mixed Conne ctive Tissu e Disea se 95% (U1 nRNP, SLE 30 - 50% anti- ribon ucleo prote in) Polym yosit is and/o r Saxon tomyo sitis 20% _ ____ ____ Scl-7 0 (anti DNA Scler oderm a (diff use) 20 - 35% topoi mery ase) Crest 13% _ ____ ____ Shivani-1 Polym yosit is and/o r Saxon tomyo sitis 20 - 40% _ ____ ____ Centr omere B Scler oderm a - Crest varia nt 80% _ ____ ____ Ribos omal P SLE 10 - 20% Not Available [facility] ([facility]) [address] [place], [address], 02/23/2024 16:36:30 02/20/20 24 02/23/2024 ANTIN UCLEA R AB 11 BY MULTI PLEX anti-DNA (ds) Ab qn 1 IU/mL 0-9 Negat henri <5 Equiv ocal 5 - 9 Posit henri >9 Not Available [facility] ([facility]) [address] [place], [address], 02/23/2024 16:36:30 02/20/20 24 02/23/2024 ANTIN UCLEA R AB 11 BY MULTI PLEX rad tech antibodies <0.2 ai 0.0-0. 9 Not Available [facility] ([facility]) [address] [facility], [place], [address], 02/23/2024 16:36:30 02/20/20 24 02/23/2024 ANTIN UCLEA R AB 11 BY MULTI PLEX jarvis antibodies <0.2 Not Available [facility] ([facility]) [address] [facility], [place], [address], 02/23/2024 16:36:30 02/20/20 24 02/23/2024 ANTIN UCLEA R AB 11 BY MULTI PLEX jarvis/rad tech antibodies <0.2 Not Available [facility] ([facility]) [address] [facility], [place], [address], 02/23/2024 16:36:30 02/20/20 24 02/23/2024 ANTIN UCLEA R AB 11 BY MULTI PLEX antisclerode rma-70 antibodies <0.2 Not Available [facility] ([facility]) [address] [facility], [place], [address], 02/23/2024 16:36:30 02/20/20 24 02/23/2024 ANTIN UCLEA R AB 11 BY MULTI PLEX sjogren's anti-ss-A <0.2 Not Available [facility] ([facility]) [address] [facility], [place], [address], 02/23/2024 16:36:30 02/20/20 24 02/23/2024 ANTIN UCLEA R AB 11 BY MULTI PLEX sjogren's anti-ss-B 0.2 ai 0.0-0. 9 Not Available [facility] ([facility]) [address] [facility], [place], [address], 02/23/2024 16:36:30 02/20/20 24 02/23/2024 ANTIN UCLEA R AB 11 BY MULTI PLEX antichromati n antibodies <0.2 ai 0.0-0. 9 Not Available [facility] ([facility]) [address] [facility], [place], [address], 02/23/2024 16:36:30 02/20/20 24 02/23/2024 ANTIN UCLEA R AB 11 BY MULTI PLEX antiribosoma l P antibodies <0.2 Not Available [facility] ([facility]) [address] [facility], [place], [address], 02/23/2024 16:36:30 02/20/20 24 02/23/2024 ANTIN UCLEA R AB 11 BY MULTI PLEX anti-shivani-1 <0.2 Not Available [facility] ([facility]) [address] [facility], [place], [address], 02/23/2024 16:36:30 02/20/20 24 02/23/2024 ANTIN UCLEA R AB 11 BY MULTI PLEX anti-centrom ere B antibodies <0.2 Not Available [facility] ([facility]) [address] [facility], [place], [address], 02/23/2024 16:36:30 02/20/20 24 02/21/2024 LIPID PANEL W/ CHOL/ HDL RATIO cholesterol, total 169 mg/dL 100-19 9 Not Available [facility] ([facility]) [address] [facility], [place], [address], 02/23/2024 16:36:31 02/20/20 24 02/21/2024 LIPID PANEL W/ CHOL/ HDL RATIO triglyceride s 82 mg/dL 0-149 Not Available [facility] ([facility]) [address] [facility], [place], [address], 02/23/2024 16:36:31 02/20/20 24 02/21/2024 LIPID PANEL W/ CHOL/ HDL RATIO HDL cholesterol 51 mg/dL >39 Not Available [facility] ([facility]) [address] [facility], [place], [address], 02/23/2024 16:36:31 02/20/20 24 02/21/2024 LIPID PANEL W/ CHOL/ HDL RATIO VLDL cholesterol angelica 15 mg/dL 5-40 Not Available [facility] ([facility]) [address] [place], [address], 02/23/2024 16:36:31 02/20/20 24 02/21/2024 LIPID PANEL W/ CHOL/ HDL RATIO LDL chol calc ([facility]) 103 mg/dL 0-99 above high normal Not Available [facility] ([facility]) [address] [place], [address], 02/23/2024 16:36:31 02/20/20 24 02/21/2024 LIPID PANEL W/ CHOL/ HDL RATIO T. chol/HDL ratio 3.3 ratio 0.0-4. 4 T. Chol/ HDL Ratio Men Women 1/2 Avg.R isk 3.4 3.3 Avg.R isk 5.0 4.4 2X Avg.R isk 9.6 7.1 3X Avg.R isk 23.4 11.0 Not Available [facility] ([facility]) [address] [place], [address], 02/23/2024 16:36:31 02/20/20 24 02/21/2024 TSH+F REE T4 TSH 2.700 uIU/m L 0.450- 4.500 Not Available [facility] ([facility]) [address] [place], [address], 02/23/2024 16:36:32 02/20/20 24 02/21/2024 TSH+F REE T4 T4,free(dire ct) 1.45 NG/dL 0.82-1 .77 Not Available [facility] ([facility]) [address] [place], [address], 02/23/2024 16:36:32 02/20/20 24 02/21/2024 COMP. METAB OLIC PANEL (14) glucose 100 mg/dL 70-99 above high normal Not Available [facility] ([facility]) [address], [place], [address], 02/23/2024 16:36:32 02/20/20 24 02/21/2024 COMP. METAB OLIC PANEL (14) BUN 8 mg/dL 6-24 Not Available [facility] ([facility]) [address], [place], [address], 02/23/2024 16:36:32 02/20/20 24 02/21/2024 COMP. METAB OLIC PANEL (14) creatinine 0.78 mg/dL 0.57-1 .00 Not Available [facility] ([facility]) [address] [facility], [place], [address], 02/23/2024 16:36:32 02/20/20 24 02/21/2024 COMP. METAB OLIC PANEL (14) eGFR 96 mL/mi n/1.7 3 >59 Not Available [facility] ([facility]) [address] [facility], [place], [address], 02/23/2024 16:36:32 02/20/20 24 02/21/2024 COMP. METAB OLIC PANEL (14) BUN/creatini ne ratio 10 9-23 Not Available [facility] ([facility]) [address] [facility], [place], [address], 02/23/2024 16:36:32 02/20/20 24 02/21/2024 COMP. METAB OLIC PANEL (14) sodium 138 mmol/ L 134-14 4 Not Available [facility] ([facility]) [address] [facility] [place], [address], 02/23/2024 16:36:32 02/20/20 24 02/21/2024 COMP. METAB OLIC PANEL (14) potassium 4.2 mmol/ L 3.5-5. 2 Not Available [facility] ([facility]) [address] [facility] [place], [address], 02/23/2024 16:36:32 02/20/20 24 02/21/2024 COMP. METAB OLIC PANEL (14) chloride 103 mmol/ L 96-106 Not Available [facility] ([facility]) [address] [place], [address], 02/23/2024 16:36:32 02/20/20 24 02/21/2024 COMP. METAB OLIC PANEL (14) carbon dioxide, total 22 mmol/ L 20-29 Not Available [facility] ([facility]) [address], [place], [address], 02/23/2024 16:36:32 02/20/20 24 02/21/2024 COMP. METAB OLIC PANEL (14) calcium 9.5 mg/dL 8.7-10 .2 Not Available [facility] ([facility]) [address] [facility] [place], [address], 02/23/2024 16:36:32 02/20/20 24 02/21/2024 COMP. METAB OLIC PANEL (14) protein, total 6.7 g/dL 6.0-8. 5 Not Available [facility] ([facility]) [address] [facility] [place], [address], 02/23/2024 16:36:32 02/20/20 24 02/21/2024 COMP. METAB OLIC PANEL (14) albumin 4.6 g/dL 3.9-4. 9 Not Available [facility] ([facility]) [address] [facility] [place], [address], 02/23/2024 16:36:32 02/20/20 24 02/21/2024 COMP. METAB OLIC PANEL (14) globulin, total 2.1 g/dL 1.5-4. 5 Not Available [facility] ([facility]) [address] [facility] [place], [address], 02/23/2024 16:36:32 02/20/20 24 02/21/2024 COMP. METAB OLIC PANEL (14) A/G ratio 2.2 1.2-2. 2 Not Available [facility] ([facility]) [address] [place], [address], 02/23/2024 16:36:32 02/20/20 24 02/21/2024 COMP. METAB OLIC PANEL (14) bilirubin, total 0.8 mg/dL 0.0-1. 2 Not Available [facility] ([facility]) [address] [place], [address], 02/23/2024 16:36:32 02/20/20 24 02/21/2024 COMP. METAB OLIC PANEL (14) alkaline phosphatase 62 IU/L 44-121 Not Available [facility]) [address] [place], [address], 02/23/2024 16:36:32 02/20/20 24 02/21/2024 COMP. METAB OLIC PANEL (14) AST (SGOT) 19 IU/L 0-40 Not Available [facility] ([facility]) [address] [place], [address], 02/23/2024 16:36:32 02/20/20 24 02/21/2024 COMP. METAB OLIC PANEL (14) ALT (SGPT) 21 IU/L 0-32 Not Available [facility] ([facility]) [address] [place], [address], 02/23/2024 16:36:32 02/20/20 24 02/21/2024 VITAM IN B12 AND FOLAT E vitamin B12 1094 pg/mL 232-12 45 Not Available [facility] ([facility]) [address] [place], [address], 02/23/2024 16:36:33 02/20/20 24 02/21/2024 VITAM IN B12 AND FOLAT E folate (folic acid), serum 2.7 NG/mL >3.0 below low normal A serum folat e rod ntrat ion of less than 3.1 ng/mL is consi dered to repre sent clini angelica defic iency . Not Available [facility] ([facility]) [address] [facility], [place], [address], 02/23/2024 16:36:33 02/20/20 24 02/21/2024 HEMOG LOBIN A1C hemoglobin A1C 5.5 % 4.8-5. 6 Predi abete s: 5.7 - 6.4 Diabe rosana: >6.4 Glyce kaz contr ol for adult s with diabe rosana: <7.0 Not Available [facility] ([facility]) [address] [facility], [place], [address], 02/23/2024 16:36:34 02/20/20 24 02/20/2024 CBC WITH DIFFE RENTI AL/PL ATELE T WBC 4.5 x10e3 /uL 3.4-10 .8 Not Available [facility] ([facility]) [address] [facility], [place], [address], 02/23/2024 16:36:34 02/20/20 24 02/20/2024 CBC WITH DIFFE RENTI AL/PL ATELE T RBC 4.51 x10e6 /uL 3.77-5 .28 Not Available [facility] ([facility]) [address] [place], [address], 02/23/2024 16:36:34 02/20/20 24 02/20/2024 CBC WITH DIFFE RENTI AL/PL ATELE T hemoglobin 14.2 g/dL 11.1-1 5.9 Not Available [facility] ([facility]) [address] [facility], [place], [address], 02/23/2024 16:36:34 02/20/20 24 02/20/2024 CBC WITH DIFFE RENTI AL/PL ATELE T hematocrit 41.0 % 34.0-4 6.6 Not Available [facility] ([facility]) [address] [facility], [place], [address], 02/23/2024 16:36:34 02/20/20 24 02/20/2024 CBC WITH DIFFE RENTI AL/PL ATELE T MCV 91 fL 79-97 Not Available [facility] ([facility]) [address] [facility], [place], [address], 02/23/2024 16:36:34 02/20/20 24 02/20/2024 CBC WITH DIFFE RENTI AL/PL ATELE T MCH 31.5 pg 26.6-3 3.0 Not Available [facility] ([facility]) [address] [facility], [place], [address], 02/23/2024 16:36:34 02/20/20 24 02/20/2024 CBC WITH DIFFE RENTI AL/PL ATELE T MCHC 34.6 g/dL 31.5-3 5.7 Not Available [facility] ([facility]) [address] [facility], [place], [address], 02/23/2024 16:36:34 02/20/20 24 02/20/2024 CBC WITH DIFFE RENTI AL/PL ATELE T RDW 12.6 % 11.7-1 5.4 Not Available [facility] ([facility]) [address] [facility], [place], [address], 02/23/2024 16:36:34 02/20/20 24 02/20/2024 CBC WITH DIFFE RENTI AL/PL ATELE T platelets 259 x10e3 /uL 150-45 0 Not Available [facility] ([facility]) [address] [facility], [place], [address], 02/23/2024 16:36:34 02/20/20 24 02/20/2024 CBC WITH DIFFE RENTI AL/PL ATELE T neutrophils 63 % notest ab. Not Available [facility] ([facility]) [address] [facility], [place], [address], 02/23/2024 16:36:34 02/20/20 24 02/20/2024 CBC WITH DIFFE RENTI AL/PL ATELE T lymphs 27 % notest ab. Not Available [facility] ([facility]) [address] [facility], [place], [address], 02/23/2024 16:36:34 02/20/20 24 02/20/2024 CBC WITH DIFFE RENTI AL/PL ATELE T monocytes 7 % notest ab. Not Available [facility] ([facility]) [address] [facility], [place], [address], 02/23/2024 16:36:34 02/20/20 24 02/20/2024 CBC WITH DIFFE RENTI AL/PL ATELE T eos 2 % notest ab. Not Available [facility] ([facility]) [address] [facility], [place], [address], 02/23/2024 16:36:34 02/20/20 24 02/20/2024 CBC WITH DIFFE RENTI AL/PL ATELE T basos 1 % notest ab. Not Available [facility] ([facility]) [address] [facility], [place], [address], 02/23/2024 16:36:34 02/20/20 24 02/20/2024 CBC WITH DIFFE RENTI AL/PL ATELE T neutrophils (absolute) 2.8 x10e3 /uL 1.4-7. 0 Not Available [facility] ([facility]) [address] [facility], [place], [address], 02/23/2024 16:36:34 02/20/20 24 02/20/2024 CBC WITH DIFFE RENTI AL/PL ATELE T lymphs (absolute) 1.2 x10e3 /uL 0.7-3. 1 Not Available [facility] ([facility]) [address] [facility], [place], [address], 02/23/2024 16:36:34 02/20/20 24 02/20/2024 CBC WITH DIFFE RENTI AL/PL ATELE T monocytes(ab solute) 0.3 x10e3 /uL 0.1-0. 9 Not Available [facility] ([facility]) [address] [facility], [place], [address], 02/23/2024 16:36:34 02/20/20 24 02/20/2024 CBC WITH DIFFE RENTI AL/PL ATELE T eos (absolute) 0.1 x10e3 /uL 0.0-0. 4 Not Available [facility] ([facility]) [address] [facility], [place], [address], 02/23/2024 16:36:34 02/20/20 24 02/20/2024 CBC WITH DIFFE RENTI AL/PL ATELE T baso (absolute) 0.0 x10e3 /uL 0.0-0. 2 Not Available [facility] ([facility]) [address] [facility], [place], [address], 02/23/2024 16:36:34 02/20/20 24 02/20/2024 CBC WITH DIFFE RENTI AL/PL ATELE T immature granulocytes 0 % notest ab. Not Available [facility] ([facility]) [address] [facility], [place], [address], 02/23/2024 16:36:34 02/20/20 24 02/20/2024 CBC WITH DIFFE RENTI AL/PL ATELE T immature grans (abs) 0.0 x10e3 /uL 0.0-0. 1 Not Available [facility] ([facility]) [address] [place], [address], 02/23/2024 16:36:34 02/20/20 24 02/21/2024 SEDIM ENTAT ION RATE- WESTE RGREN sedimentatio n rate-westerg marleen 2 mm/HR 0-32 Not Available [facility] ([facility]) [address] [place], [address], 02/23/2024 16:36:35 02/20/20 24 02/21/2024 C-ANA CTIVE PROTE IN, QUANT C-reactive protein, quant <1 mg/L 0-10 Not Available [facility] ([facility]) [address] [place], [address], 02/23/2024 16:36:35 02/20/20 24 02/21/2024 THYRO ID ANTIB ODIES thyroid peroxidase (tpo) Ab <9 IU/mL 0-34 Not Available [facility] ([facility]) [address] [place], [address], 02/23/2024 16:36:36 02/20/20 24 02/23/2024 THYRO ID ANTIB ODIES thyroglobuli n antibody <1.0 IU/mL 0.0-0. 9 Thyro globu tammie Antib agatha measu red by Prabhu friedman Coul[facility] er Metho dolog y It shoul d be noted that the prese nce of thyro globu tammie antib odies may not be patho genic nor diagn ostic , espec ially at very low level s. The assay [facility] has found that four perce nt of indiv idual s witho ut evide nce of thyro id disea se or autoi mmuni ty will have posit ehnri TgAb level s up to 4 IU/mL . Not Available [facility] ([facility]) [address] [facility], [place], [address], 02/23/2024 16:36:36 02/20/20 24 02/21/2024 TRIIO DOTHY MIRANDA E (T3), FREE triiodothyro nine (T3), free 3.4 pg/mL 2.0-4. 4 Not Available [facility] ([facility]) [address] [place], [address], 02/23/2024 16:36:37 02/20/20 24 02/21/2024 FE+TI BC+FE R iron bind.cap.(TI BC) 342 ug/dL 250-45 0 Not Available [facility] ([facility]) [address] [place], [address], 02/23/2024 16:36:37 02/20/20 24 02/21/2024 FE+TI BC+FE R UIBC 138 ug/dL 131-42 5 Not Available [facility] ([facility]) [address] [place], [address], 02/23/2024 16:36:37 02/20/20 24 02/21/2024 FE+TI BC+FE R iron 204 ug/dL 27-159 above high normal Not Available [facility] ([facility]) [address] [place], [address], 02/23/2024 16:36:37 02/20/20 24 02/21/2024 FE+TI BC+FE R iron saturation 60 % 15-55 above high normal Not Available [facility] ([facility]) [address] [place], [address], 02/23/2024 16:36:37 02/20/20 24 02/21/2024 FE+TI BC+FE R ferritin 246 NG/mL 15-150 above high normal Not Available [facility] ([facility]) [address] [place], [address], 02/23/2024 16:36:37 02/20/20 24 02/21/2024 VITAM IN D, 25-HY DROXY vitamin D, 25-hydroxy 24.5 NG/mL 30.0-1 00.0 below low normal Vitam in D defic iency has been defin ed by the Insti tute of Medic ine and an Endoc rine Socie ty pract ice guide line as a level of serum 25-OH vitam in D less than 20 ng/mL (1,2) . The Endoc rine Socie ty went on to [facility] er defin e vitam in D insuf ficie ncy as a level betwe en 21 and 29 ng/mL (2). 1. IOM (Inst itute of Medic ine). 2010. Dieta ry refer ence intfrancisco es for calci um and D. Darwin marquez [place]: The [facility] Press . 2. Christelle k [place], Binkl ey [place], Bisch off-F errar i PRESTON, et al. Evalu ation , treat ment, and preve ntion of vitam in D defic iency : an Endoc rine Socie ty clini angelica pract ice guide line. JCEM. 2010; 96(7) :1911 -30. Not Available [facility] ([facility]) [address] [facility], [place], [address], 02/23/2024 16:36:38 04/27/20 24 04/27/2024 MRI, knee, w/o contr ast No observ ation record ed. [email or web address] [facility] [address], [place], [address], 05/02/2024 14:48:20 Result Notes None recorded. Problems Name Problem SNOMED Code Status Onset Date Resolution Date Notes Provider Name and Address Organization Details Recorded Time Benign essential hypertension 7646536 Active 2023 REX Pena Attn: Selina alexander,[address] [facility], [place], [address], [facility] - [facility] 4 08:58:43 Dry eyes 242285643 Active 2023 REX Pena Attn: Selina alexander,[address] [facility], [place], [address], [place] - [place] 4 08:58:44 Xerostomia 91655689 Active 2023 REX Pena Attn: Selina alexander,[address] [facility], [place], [address], [facility] - [facility] 4 08:58:45 Multiple joint pain 56808279 Active 2023 REX Pena Attn: Accountin g,[address] [facility], [place], [address], [place] - [facility] 4 08:58:47 Obstructive sleep apnea syndrome 55367678 Active 2023 REX Pena Attn: Accountin g,[address] [facility], [place], [address], [place] [facility] 4 08:58:48 Serum iron above reference range [id number] Active 2023 REX Pena Attn: Accountin g,[address] [facility], [place], [address], [place] [facility] 4 11:35:41 Irritability and anger 453501992 Active 2023 REX Pena Attn: Accountin g,[address] [facility], [place], [address], [place] [facility] 4 11:36:09 Body mass index 25-29 - overweight 337273847 Active 2023 REX Pena Attn: Accountin g,[address] [facility], [place], [address], [place] - [facility] 4 11:37:33 Long-term drug therapy Active 2023 REX Pena Attn: Accountin g,[address] [facility], [place], [address], [place] [facility] 4 11:37:34 Vitamin D deficiency 73202788 Active 2023 REX Pena Attn: Accountin g,[address] [facility], [place], [address], [place] [facility] 4 11:37:46 Folic acid deficiency 691693464 Active 2023 REX Pena Attn: Accountin g,[address] [facility], [place], [address], [place] [facility] 11:37:47 Overweight 557407890 Active 2023 REX Pena Attn: Selina alexander,[address], [place], [address], [place] [facility] 14:11:26 Problem Notes None recorded. Procedures Surgical History Date Name Laterality Status Provider Name and Address Organization Details Recorded Time ligation of bilateral fallopian tubes completed Nicholas Murrieta MA [facility] 02/17/2024 15:19:53 Imaging Results Imaging Date Name Status LastModified by Organiz ation Details LastModified Time 04/27/2024 [facility] [place] [address] Imaging [address], [place], [address], 05/02/2024 14:48:20 Procedure Notes None recorded. Medical Equipment None Reported. Allergies No known drug allergies Medications Name Sig Start Date Stop Date Status Note LastModified by Organization Details LastModified Time citalopra m 10 mg tablet TAKE 1 TABLET BY MOUTH EVERY DAY 2023 active Not Available Not Available Not Avai lable meloxicam 7.5 mg tablet Take 1 tablet every day by oral route for 30 days. active Not Available Not Available No t Available valsartan 320 mg tablet Take 1 tablet every day by oral route. active Not Available Not Available No t Available fluoxetin e 10 mg capsule Take 1 capsule every day by oral route for 30 days. 09/02 completed states that this gave her a reactio n Not Available Not Available Not Available valsartan 160 mg tablet Take 1 tablet every day by oral route. 09/02 completed Not Available Not Available Not Available Vitals Date Recorded Body height Provider Name an d Address Organization Details Last Updated DateTime 02/17/2024 160.02 cm Nicholas Murrieta MA [facility] 2023 14:24:49 Date Recorded Respiratory rate Provider Name a nd Address Organization Details Last Updated DateTime 02/17/2024 20 /min Nicholas Murrieta MA [facility] 02/17/2024 14:25:00 Date Recorded Body mass index (BMI) Body weight Provider Name and Address Organization Details Last Updated DateTime 02/17/2024 27.8 kg/m2 15015 benjamin Nicholas Murrieta MA [facility] 02/17/2024 14:25:18 Date Recorded Oxygen saturation Oxygen saturation in Arterial blood by Pulse oximetry Provider Name and Address Organization Details Last Updated DateTime 02/17/2024 98 % 98 % Nicholas Murrieta [place] [facility] 02/17/2024 14:25:30 Date Recorded Heart rate Provider Name an d Address Organization Details Last Updated DateTime 02/17/2024 87 /min Nicholas Murrieta MA [facility] 2023 14:25:31 Date Recorded Body height Provider Name an d Address Organization Details Last Updated DateTime 04/20/2024 160.02 cm Nicholas Murrieta [place] [facility] 2023 13:50:44 Date Recorded Body mass index (BMI) Body weight Provider Name and Address Organization Details Last Updated DateTime 04/20/2024 27.5 kg/m2 15498.82 benjamin Nicholas Murrieta MA [facility] 04/20/2024 13:57:19 Date Recorded Respiratory rate Provider Name a nd Address Organization Details Last Updated DateTime 04/20/2024 20 /min Nicholas Murrieta [place] [facility] 04/20/2024 13:58:22 Date Recorded Oxygen saturation Oxygen saturation in Arterial blood by Pulse oximetry Provider Name and Address Organization Details Last Updated DateTime 04/20/2024 97 % 97 % Nicholas Murrieta [place] [facility] 04/20/2024 13:58:42 Date Recorded Heart rate Provider Name an d Address Organization Details Last Updated DateTime 04/20/2024 87 /min Nicholas Murrieta MA [facility] 2023 13:58:44 Date Recorded Body height Provider Name an d Address Organization Details Last Updated DateTime 09/02/2024 160.02 cm Nicholas Murrieta [place] [facility] 2023 13:56:31 Date Recorded Body mass index (BMI) Body weight Provider Name and Address Organization Details Last Updated DateTime 09/02/2024 28 kg/m2 22997.59 benjamin Nicholas Murrieta MA [facility] 09/02/2024 13:57:39 Date Recorded Respiratory rate Provider Name a nd Address Organization Details Last Updated DateTime 09/02/2024 20 /min Nicholas Murrieta MA [facility] 09/02/2024 13:58:01 Date Recorded Oxygen saturation Oxygen saturation in Arterial blood by Pulse oximetry Provider Name and Address Organization Details Last Updated DateTime 09/02/2024 99 % 99 % Nicholas Murrieta MA [facility] 09/02/2024 14:00:27 Date Recorded Heart rate Provider Name an d Address Organization Details Last Updated DateTime 09/02/2024 85 /min Nicholas Murrieta MA [facility] 2023 14:00:29 Date Recorded Systolic blood pressure Diastolic blood pressure Provider Name and Address Organization Details Last Updated DateTime 02/17/2024 140 mm[Hg] 88 mm[Hg] Nicholas Murrieta MA [facility] 02/17/2024 14:26:45 Date Recorded Systolic blood pressure Diastolic blood pressure Provider Name and Address Organization Details Last Updated DateTime 04/20/2024 136 mm[Hg] 82 mm[Hg] Nicholas Murrieta MA [facility] 04/20/2024 14:04:01 Date Recorded Systolic blood pressure Diastolic blood pressure Provider Name and Address Organization Details Last Updated DateTime 09/02/2024 140 mm[Hg] 82 mm[Hg] Nicholas Murrieta MA [facility] 09/02/2024 14:01:47 Date Recorded Systolic blood pressure Diastolic blood pressure Provider Name and Address Organization Details Last Updated DateTime 09/02/2024 160 mm[Hg] 80 mm[Hg] REX Pena Attn: [employer] [place], [address], [facility] 09/02/2024 14:13:32 Date Recorded Systolic blood pressure Diastolic blood pressure Provider Name and Address Organization Details Last Updated DateTime 09/02/2024 160 mm[Hg] 80 mm[Hg] REX Pena Attn: [address] [place], [address], [facility] 09/02/2024 14:13:43 Social History Question Answer Notes LastModified by Organizat ion Details LastModified Time Tobacco Smoking Status Current Every Day Smoker Nicholas Murrieta MA [facility], [place] - [facility] 02/17/2024 14:23:23 What Is Your Level Of Alcohol Consumption? Heavy Everyday Information not available 02/17/2024 Are You Blind Or Do You Have Difficulty Seeing? No EYE SIGHT ISN'T THE BEST Information not available 02/17/2024 What Is Your Level Of Caffeine Consumption? Moderate Soda Information not available 02/17/2024 In The 14 Days Before Symptom Onset, Have You Had Close Contact With A Laboratory-confir med COVID-19 While That Case Was Ill? No Information not available 02/17/2024 In The 14 Days Before Symptom Onset, Have You Had Close Contact With A Person Who Is Under Investigation For COVID-19 While That Person Was Ill? No Information not available 02/17/2024 Have You Been To An Area Known To Be High Risk For COVID-19? No Information not available 02/17/2024 Are You Deaf Or Do You Have Serious Difficulty Hearing? No Information not available 02/17/2024 What Type Of Diet Are You Following? REGULAR Information not available 02/17/2024 Are There Any Guns Present In Your Home? No Information not available 02/17/2024 What Was The Date Of Your Most Recent Tobacco Screening? 09/02/2024 Information not available 09/02/2024 What Is Your Current Pack Years? 30ormorepack years Information not available 02/17/2024 Do You Use Your Seat Belt Or Car Seat Routinely? Yes Information not available 02/17/2024 Do You Have Smoke And Carbon Monoxide Detectors In Your Home? Yes Information not available 02/17/2024 At What Age Did You Start Smoking Tobacco? 15 Information not available 02/17/2024 How Much Tobacco Do You Smoke? 0.5 PPD Information not available 02/17/2024 Do You Use Any Illicit Or Recreational Drugs? No Information not available 09/02/2024 Do You Use Sunscreen Routinely? Yes Information not available 02/17/2024 Has Tobacco Cessation Counseling Been Provided? Yes Information not available 02/17/2024 On What Date Was Tobacco Cessation Counseling Provided? 09/02/2024 Information not available 09/02/2024 How Many Years Have You Smoked Tobacco? 30 Information not available 02/17/2024 Do You Or Have You Ever Used Any Other Forms Of Tobacco Or Nicotine? No Information not available 02/17/2024 Sex: Female Functional Status Question Answer Note LastModified by Organizat ion Details LastModified Time Are you able to care for yourself? Yes Information not available 02/17/2024 What is your exercise level? Moderate yard work, run Information not available 02/17/2024 Mental Status None recorded. Family History Relationship Description Onset Age of this Age Resolved Age Notes LastModified by Organization Details LastModified Time Mother Asthma [email or web address] Not available 02/17/2024 15:20:02 Mother Hypertensive disorder [email or web address] Not available 2023 15:20:06 Mother Malignant tumor of ovary tcarterma Not available 2023 15:20:15 Father Diabetes mellitus tcarterma Not available 2023 13:59:20 Medical History Condition Response Coronary Artery Disease N Other N Atrial Fibrillation N High Blood Pressure N Depression N COPD N Blood Clots N Anxiety Disorder N Muscle, Joint, or Bone Problems N Acid Reflux (GERD) Y Cancer N Stroke N Headaches N Kidney or Bladder Problems N Skin Problems N Asthma Y Allergies Y Hepatitis N High Cholesterol N Liver Disease N Thyroid Problems N GI Problems N Anemia N Heart Attack ([place]) N Diabetes N Seizures/Epilepsy N Heart Failure N Osteoporosis N Gynecological History Statement/Question Response Menses Monthly N LMP Obstetrics History GPAL:G 3 P 3 0 0 3 Type Value Full Term 3 Induced 0 Spontaneous 0 Premature 0 Living 3 Total 3 Immunizations Vaccine Type Date Status Note Provider Nam e and Address Organization Details Recorded Time COVID-19, mRNA, LNP-S, PF, 30 mcg/0.3 mL dose 03/15/2021 completed Nicholas Murrieta [place], [place] - [facility] 09/02/2024 13:59:40 COVID-19, mRNA, LNP-S, PF, 30 mcg/0.3 mL dose 04/05/2021 completed Nicholas Murrieta MA [place], [place] - [facility] 09/02/2024 13:59:40 COVID-19, mRNA, LNP-S, PF, 30 mcg/0.3 mL dose, darek-sucrose 12/11/2021 completed CAL [place], [place] - [facility] 09/02/2024 13:59:40 Tdap 11/18/2016 completed CAL [place], [place] - [facility] 09/02/2024 13:59:40 Past Encounters Encounter ID Performer Location Encounter Start Date Encounter Closed Date Diagnosis/Indication Diagnosis SNOMED-CT Code Diagnosis ICD10 Code Diagnosis Note [id number] REX Pena [facility] [employer] [address] [place] [address] 02/17/2024 13:58:01 02/17/2024 15:10:22 Dry eyes 541205514 H04.123 screening RICK multiplex panel [employer] 46419656 R68. 2 as above. autoimmune evaluation ordered. Obstructiv e sleep apnea syndrome 49904122 G47.33 pt will be discussing tx also with dentist . Multiple joint pain 3567 8005 M25.50 screening RA panel, ESR and CRP Thyroid di sorder screening 502447447 Z13.29 baseline thyroid panel ordered. Cholesterol screening 27 6368378 Z13.220 fasting lipids ordered. Diabetes m ellitus screening 891941835 Z13.1 a1c screening ordered for diabetes risk assessment . Adult [facility] examination 117446311 Z00.01 new patient exam complete. Baseline labs ordered. fasting. Fatigue 70290488 R53.83 screening b12, folate, vit D and iron studies ordered. Screening for malignant neoplasm of colon 623218009 Z12.11 refer for baseline colonoscop y due later in year at age 44. Benign ess ential hypertension 9084622 I10 BP 140/88 today. hx of elevations at other offices lately. start valsartan 180mg daily. [id number] REX Pena [facility] [employer] [address] [place] [id number] 04/20/2024 13:46:30 04/20/2024 14:38:38 Benign essential hypertension 9545092 I10 Blood pressure is 136/82 on exam, continue valsartan 186mg daily. Follow-up in 6 months. Serum iron above reference range 993974261 R79.0 Patient did have an iron ferritin level of 246 on labs and was referred to Hematology . She will call hematology they never called her back. Irritabili ty and anger 339373113 R45.4 Patient is expressing a high level of irritabili ty and easily angered. She will start low-dose fluoxetine 10 mg capsule 1 tablet daily she will call with any adverse side effects questions or concerns. Pt to seek ER with any S.I. She will call with any intoleranc e, side effects or lack of efficacy issues. Long-term drug therapy 272850961 Z79.899 Body mass index 25-29 - overweight 833188448 Z68.27 Vitamin D deficiency 347 32198 E55.9 Patient is low on vitamin-D labs and daily over-the-c ounter vitamin D3 supplement recommende d. Folic acid deficiency 19 1548898 E53.8 Patient is low on folate on recent lab work and 1 mg of folic acid daily is recommende d. [id number] REX Pena [facility] [address] [place] [address] 09/02/2024 13:50:59 09/06/2024 16:25:20 Benign essential hypertension 5140725 I10 Even if blood pressure is slightly more elevated in the Clinical environmen t her blood pressure is running just too high. We are going to boost to 320mg valsartan daily. Follow-up in November Body mass index 25-29 - overweight 000505188 Z68.27 BMI is 28 Overweight 267991621 E66 .3 Serum iron above reference range 520513478 R79.0 Patient did have an iron ferritin level of 246 on labs and was referred to Hematology . She will call hematology they never called her back. Irritabili ty and anger 042629679 R45.4 Start low-dose citalopram 10 mg daily for continued irritabili ty and anger. Long-term drug therapy 307191435 Z79.899 Health Concerns Section Related Observation LastModified by Organization Detai ls LastModified Time None Recorded Concern Status LastModified by Organization Details LastModified Time None Recorded Advance Directives Directive None Recorded Payers Encounter Date Sequence Insurance Name Policy Number Policy Daniels Covered Member ID Daniels Member ID Guarantor Name 02/17/2024 1 [place] [id number] 1 Leatha Sinks [id number] Leatha Sinks 04/20/2024 1 [place] [id number] 1 Leatha Sinks [id number] Leatha Sinks 09/02/2024 1 [place] [id number] 1 Leatha Sinks [id number] Leatha Sinks Notes Date Note Type Note Provider Name and Address Organization Details Recorded Time 4 text/html Generic HPI TemplateReported bypatient.Notes:New pt est care, Pt. states that she has been going to the eye doctor states that they told her that she has super dry eyes states that she also went to the dentist states that she her teeth started to rotten and fall out, States that she also has been having high bp lately. Has been very tired/fatigue lately ; also with multiple joint pains and sleep apnea hx.States that she thinks as if she has AUTOIMMUNE DISEASE BECAUSE OF THE SYMPTOMS REX Pena Attn: [employer] [facility], [place], [address], [facility] 02/23/2024 08:59:12 4 text/html HypertensionReported bypatient.Notes:Patient is following up on hypertension, valsartan 160 mg daily was started at her 1st visit with primary care provider at this office. She is tolerating the medication well without any type of adverse effects or symptom complaints. She also had extensive lab panel ordered evaluating multiple symptoms including joint pain, dry eyes, dry mouth, fatigue. She has underlying obstructive sleep apnea as well. Patient reports easily agitated, irritation and easily angered. She is interested in starting some medication for balancing her mood. She is in perimenopausal phase. REX Pena Attn: [employer] [facility], [place], [address], [facility] 05/02/2024 11:39:17 4 text/html HypertensionReported bypatient.Notes:Patient is following up on hypertension, valsartan 160 mg daily . She is tolerating the medication well without any type of adverse effects or symptom complaints. She also had extensive lab panel ordered evaluating multiple symptoms including joint pain, dry eyes, dry mouth, fatigue. She has underlying obstructive sleep apnea as well. Patient reports easily agitated, irritation and easily angered. She is interested in starting some medication for balancing her mood. She is in perimenopausal phase. REX Pena Attn: Accounting,[address], [place], [address], [facility] 09/23/2024 14:49:26 OBGyn Episode No OBEpisode recorded.
[2024-11-24 13:19] LABS: Alanine Aminotransferase 22 U/L (6-35); Albumin Level 4.7 g/dL (3.5-5.1); Alkaline Phosphatase 66 U/L (38-126); Anion Gap 9 mmol/L (4-12); Aspartate Amino Transferase 25 U/L (14-36); Bilirubin,Total 0.5 mg/dL (0.2-1.3); Blood Urea Nitrogen 10 mg/dL (7-17); Calcium 9.7 mg/dL (8.4-10.2); Carbon Dioxide 27 mmol/L (22-30); Chloride 104 mmol/L (98-107); Estimated Glomerular Filt Rate > 60; Glucose 93 mg/dL (65-110); Potassium 4.7 mmol/L (3.4-5.0); Sodium 140 mmol/L (137-145)
[2024-11-24 13:20] LABS: Iron 130 ug/dL (37-170)
[2024-11-24 13:29] LABS: Percent Iron Saturation 36 % (20-50)
== END 2024-11-24 11:06 | disposition home or self-care (01) ==
LOC: ANHLAB 11:06
PROVIDERS: PCP Physician Assistant; Visit Provider Internal Medicine Hematology & Oncology
DX: E83.19 Other disorders of iron metabolism (principal)
CPT/HCPCS: 36415; 80053; 81256; 82728; 83540; 83550; 85025